=== PATIENT | male | born 1980 | race Caucasian/White ===

== ENCOUNTER 2016-12-17 05:37 | Emergency (ER) | payer SELFPAY ==
[~2016-12-17] VITALS: Ht 188 cm; Wt 78.3 kg
[~2016-12-17 05:37] MED LIST: NAPROSYN500 MG PO; no home med
[2016-12-17 06:22] LABS: HEMATOCRIT 44.4 % (38.0-50.0); MCH 29.5 PG (29.0-34.0); MCHC 34.2 G/DL (30.0-36.0); MCV 86.2 FL (86-99); MEAN PLAT.VOLUME 8.9 uM^3 (9.0-12.4); PLATELET COUNT 319 K/uL (156-360); RBC DIS.WIDTH-CV 11.9 % (11.8-14.6); RED BLOOD COUNT 5.15 M/uL (4.00-5.50); WHITE BLOOD COUNT 8.7 K/uL (4.1-10.2)
[2016-12-17 06:31] LABS: CHLORIDE 109 mEq/L (99-109); POTASSIUM 4.1 mEq/L (3.7-5.4); SODIUM 139 mEq/L (136-147)
[2016-12-17 06:32] LABS: GLUCOSE 123 mg/dL (70-99)
[2016-12-17 06:34] LABS: ANION GAP 12 MEQ/L (2-14)
[2016-12-17 06:36] LABS: GFR ESTIMATE (CALCULATED) > 59 mL/min/
[2016-12-17 06:37] LABS: UREA NITROGEN (BUN) 15 mg/dL (9-23)
[2016-12-17 06:38] LABS: ADD MIUA? NO; BILIRUBIN NEGATIVE; BLOOD NEGATIVE; COLOR YELLOW ((YELLOW)); GLUCOSE (STRIP) NEGATIVE; KETONES NEGATIVE; LEUKOCYTES NEGATIVE; NITRITE NEGATIVE; PROTEIN (STRIP) NEGATIVE; SPECIFIC GRAVITY 1.013 (1.000-1.030); UCUL ADDED? NO; UROBILINOGEN 0.2 MG/DL (0.2-1.0)
[2016-12-17 06:46] LABS: AMPHETAMINE NEGATIVE (500 ng/mL); BARBITURATES NEGATIVE (200 ng/mL); BENZODIAZEPINES NEGATIVE (150 ng/mL); COCAINE NEGATIVE (150 ng/mL); INTERNAL CONTROLS VALID? YES; METHADONE NEGATIVE (200 ng/mL); METHAMPHETAMINE NEGATIVE (500 ng/mL); OPIATES (MORPHINE) NEGATIVE (100 ng/mL); OXYCODONE NEGATIVE (100 ng/mL); PHENCYCLIDINE NEGATIVE (25 ng/mL); PROPOXYPHENE NEGATIVE (300 ng/mL); THC CANNABINOIDS NEGATIVE (50 ng/mL); TRICYCLIC ANTIDEPRESSANTS NEGATIVE (300 ng/mL)
[2016-12-17 06:53] LABS: SERUM ETHYL ALCOHOL < 10 mg/dL
[2016-12-17 07:58] VITALS: BP 128/85
== END 2016-12-17 08:07 | disposition home or self-care (01) ==
LOC: EME → EDBD 05:37 → EME 08:07
PROVIDERS: Emergency Medicine; Nurse Practitioner Family
DX: R56.9 Unspecified convulsions (principal)
CPT/HCPCS: 70450; 80048; 81003; 85027; 99281; 99285; G0480; J2405; J7030